=== PATIENT | female | born 1990 | race African-American/Black ===

== ENCOUNTER 2017-07-14 01:43 | Emergency (ER) | payer SELFPAY ==
[~2017-07-14] VITALS: Ht 165.1 cm; Wt 54.5 kg
[2017-07-14 03:18] VITALS: BP 141/92
== END 2017-07-14 03:19 | disposition home or self-care (01) ==
LOC: EMS 01:45
DX: S61.213A Laceration without foreign body of left middle finger without damage to nail, initial encounter (principal); F12.10 Cannabis abuse, uncomplicated; F14.10 Cocaine abuse, uncomplicated; F17.210 Nicotine dependence, cigarettes, uncomplicated; W45.8XXA Other foreign body or object entering through skin, initial encounter; Y93.89 Activity, other specified; Y92.89 Other specified places as the place of occurrence of the external cause; Y99.8 Other external cause status
CPT/HCPCS: 99281